=== PATIENT | male | born 1985 | race African-American/Black ===

== ENCOUNTER 2019-02-09 16:55 | Emergency (ER) | payer OTHER ==
--- NOTE | 2019-02-09 17:50 | ED ---
Back Pain - HPI Summary HPI Summary: This patient is a 33 year old M presenting to [facility] accompanied by family with a chief complaint of left-sided back pain that began [employer]. Patient reports the pain began after falling while playing basketball at approximately 1645 today. The patient rates the pain 8/10 in severity. Symptoms aggravated by nothing. Symptoms alleviated by nothing. Patient denies numbness in BLE and weakness in BLE. - History of Current Complaint Chief Complaint: EDBackInjuryPain Stated Complaint: BACK INJURY PER PT Time Seen by Provider: 02/09/19 17:43 Hx Obtained From: Patient Onset/Duration: Sudden Onset, Lasting Hours, Still Present Onset/Duration: Started Hours Ago, Traumatic, Still Present Timing: Constant Severity Initially: Severe Severity Currently: Severe Pain Intensity: 8 Pain Scale Used: 0-10 Numeric Aggravating Symptom(s): Nothing Alleviating Symptom(s): Nothing Associated Signs And Symptoms: Negative: Weakness, Tingling - Allergies/Home Medications Allergies/Adverse Reactions: Allergies Allergy/AdvReac Type Severity Reaction Status Date / Time No Known Allergies Allergy Verified 02/09/19 16:59 PMH/Surg Hx/FS Hx/Imm Hx Previously Healthy: Yes Opthamlomology History: Denies: Hx Legally Blind EENT History: Denies: Hx Deafness Infectious Disease History: No Infectious Disease History: Denies: Traveled Outside the [place] in Last 30 Days - Family History Known Family History: Negative: Blood Disorder - Social History Occupation: Employed Full-time Lives: With Family Alcohol Use: Occasionally Hx Substance Use: No Substance Use Type: Reports: None Hx Tobacco Use: No Smoking Status (MU): Unknown if Ever Smoked Review of Systems Positive: Other - Positive left-sided back pain Negative: Weakness, Numbness All Other Systems Reviewed And Are Negative: Yes Physical Exam - Summary Physical Exam Summary: Appearance: Well appearing, no pain distress Skin: warm, dry, reflects adequate perfusion Head/face: normal Eyes: EOMI, JESSICA ENT: mucous membranes moist Neck: supple, non-tender Respiratory: CTA, breath sounds present Cardiovascular: RRR, pulses symmetrical Abdomen: non-tender, soft Bowel Sounds: present Musculoskeletal: strength/ROM intact, No hip tenderness, no sacral tenderness, no midline tenderness, limitation to range of motion, spasm to left side paralumbar Neuro: normal, sensory motor intact, A&Ox3 Triage Information Reviewed: Yes Vital Signs On Initial Exam: Initial Vitals Temp Pulse Resp BP Pulse Ox 97.8 F 84 18 127/76 100 02/09/19 16:57 02/09/19 16:57 02/09/19 16:57 02/09/19 16:57 02/09/19 16:57 Vital Signs Reviewed: Yes Procedures - Procedure Summary Procedure Summary: Trigger point injection for muscle spasm: Description: The patient was laid supine and his left para lumbar musculature was cleaned with alcohol. He was injected with a total of 10 cc of 0.5% bupivacaine with epinephrine and divided aliquots throughout the tender musculature. This was massaged through the tissues. His pain and spasm was greatly improved. He remained range of motion. He tolerated this well without complication. Diagnostics - Vital Signs Vital Signs Temp Pulse Resp BP Pulse Ox 02/09/19 16:57 97.8 F 84 18 127/76 100 - Laboratory Lab Statement: Any lab studies that have been ordered have been reviewed, and results considered in the medical decision making process. Back Pain Course/Dx - Course Course Of Treatment: Nurse's notes reviewed. Patient with muscle spasm and pain in his left lumbar back after falling on the basketball court. No midline tenderness. Normal gait. Trigger point injection greatly improved his pain. Discharged on FlexerilCrispinrosyn. Follow-up with [facility] and or chiropractor. - Diagnoses Differential Diagnosis/HQI/PQRI: Positive: Fracture, Strain, Sprain Provider Diagnoses: Lumbar strain, Fall Discharge - Sign-Out/Discharge Documenting (check all that apply): Patient Departure - Discharge home Patient Received Moderate/Deep Sedation with Procedure: No - Discharge Plan Condition: Improved Disposition: HOME Prescriptions: Cyclobenzaprine (NF) [Cyclobenzaprine 5 MG (NF)] 5 mg PO TID PRN #12 tab PRN Reason: muscle pain Naproxen [Naproxen 500 mg tab] 500 mg PO BID PRN #12 tablet PRN Reason: Pain Patient Education Materials: Low Back Strain (ED) Forms: *Work Release Referrals: [facility] [Outside] [facility] REFERRAL [Outside] Additional Instructions: Ice, stay stretching, range of motion exercises. Return with increased pain, difficulty with bowel/bladder, numbness/weakness, worse or other concerns. Massage or customer care associate may help. Follow-up with the [facility] on Monday as needed. You also been given referral to primary care physician. - Billing Disposition and Condition Condition: IMPROVED Disposition: Home - Attestation Statements Document Initiated by Venessa: Yes Documenting Scribe: Adri Daugherty Provider For Whom Venessa is Documenting (Include Credential): Dr. Marcello Tom MD Scribe Attestation: I, Adri Daugherty, scribed for Dr. Marcello Tom MD on 02/09/19 at 1808. Scribe Documentation Reviewed: Yes Provider Attestation: The documentation as recorded by the Adri maldonado accurately reflects the service I personally performed and the decisions made by me, Dr. Marcello Tom MD Status of Scribe Document: Viewed
[2019-02-09] MEDS ORDERED: Naproxen TAB* 250 MG PO ONE (17:56)
[2019-02-09] MEDS ORDERED: Cyclobenzaprine TAB* 10 MG PO ONE (17:56)
[2019-02-09 18:17] VITALS: BP 130/89
== END 2019-02-09 18:16 | disposition home or self-care (01) ==
LOC: ED 16:55
DX: S39.012A Strain of muscle, fascia and tendon of lower back, initial encounter (principal); W19.XXXA Unspecified fall, initial encounter; Y93.67 Activity, basketball; Y92.310 Basketball court as the place of occurrence of the external cause
CPT/HCPCS: 99283; A9270-GY